=== PATIENT | female | born 1945 | race Caucasian/White ===

== ENCOUNTER 2023-04-08 15:22 | Observation (INO) ==
[2023-04-08 18:34] LABS: ABS Basophils 0.1 10^3/uL (0.0-0.1); ABS Eosinophils 0.2 10^3/uL (0.0-0.5); ABS Lymphocytes 1.9 10^3/uL (1.0-4.8); ABS Monocytes 0.8 10^3/uL (0.0-0.9); ABS Neutrophils 3.9 10^3/uL (1.5-7.6); Eosinophil % 3.6 %; Hematocrit 35.8 % (35-45); Hemoglobin 12.1 g/dL (11.5-14.3); Lymphocyte % 27.3 %; Mean Corpuscular Hemoglobin 31.8 pg (27-33); Mean Corpuscular Hgb Conc 33.9 g/dL (31-36); Mean Corpuscular Volume 93.9 fL (80-97); Mean Platelet Volume 7.5 fL (7.5-11.2); Platelet Count 261 10^3/uL (150-450); Red Blood Count 3.81 10^6/uL (3.63-4.92); Red Cell Distribution Width 13.5 % (12-17); White Blood Count 6.9 10^3/uL (3.8-11.8)
[2023-04-08 18:48] LABS: Albumin 3.9 g/dL (3.2-5.2); Calcium 9.5 mg/dL (8.6-10.3); Potassium 3.8 mmol/L (3.5-5.0); Total Bilirubin 0.4 mg/dL (0.2-1.0)
[2023-04-08 18:54] LABS: Albumin/Globulin Ratio 1.3 (1-3); C Reactive Protein 11.19 mg/L (<8.01); Creatinine, Serum 1.12 mg/dL (0.51-0.95); Globulin 3.1 g/dL (2-4); Phosphorus 3.4 mg/dL (2.5-5.0); eGFR CKD-EPI 49.7 (>60)
[2023-04-08 19:28] LABS: TSH Ultra Thyroid Stim Horm 13.13 mcIU/mL (0.34-5.60)
[2023-04-08 19:50] LABS: High Sensitivity Troponin 1 Hr 4 pg/mL (<15)
[2023-04-08 21:02] LABS: Erythrocyte Sed Rate 42 mm/Hr (0-29)
[2023-04-08] MEDS ORDERED: Lactated Ringers 1000 ml BAG 1,000 ML IV SCH (23:45)
[2023-04-09 07:17] LABS: ABS Basophils 0.1 10^3/uL (0.0-0.1); ABS Eosinophils 0.2 10^3/uL (0.0-0.5); ABS Lymphocytes 1.4 10^3/uL (1.0-4.8); ABS Monocytes 0.6 10^3/uL (0.0-0.9); ABS Neutrophils 3.7 10^3/uL (1.5-7.6); ABS Nucleated RBC 0.01 10^3/ul; Eosinophil % 3.2 %; Hematocrit 36.6 % (35-45); Hemoglobin 12.4 g/dL (11.5-14.3); Lymphocyte % 23.3 %; Mean Corpuscular Hemoglobin 31.7 pg (27-33); Mean Corpuscular Volume 93.2 fL (80-97); Mean Platelet Volume 7.5 fL (7.5-11.2); Nucleated Red Blood Cells % 0.1 /100 WBC (0.0-0.4); Platelet Count 251 10^3/uL (150-450); Red Blood Count 3.92 10^6/uL (3.63-4.92); Red Cell Distribution Width 13.6 % (12-17); White Blood Count 5.9 10^3/uL (3.8-11.8)
[2023-04-09 07:38] LABS: Creatinine, Serum 1.04 mg/dL (0.51-0.95); Potassium 4.1 mmol/L (3.5-5.0); eGFR CKD-EPI 54.3 (>60)
[2023-04-09 08:26] LABS: Free T4 0.87 ng/dL (0.61-1.12)
[2023-04-09 08:27] LABS: Free T3 2.8 pg/mL (2.5-3.9)
[2023-04-09] MEDS: Cholecalciferol (VIT D3) 400 units TAB PO SCH (08:27)
[2023-04-09] MEDS: Calcium (OSCAL) 500 mg TAB PO SCH ×2 (08:27→17:22)
[2023-04-09] MEDS: Enoxaparin 40 MG/0.4 ML SYR SUBCUT SCH ×2 (08:34→22:14)
[2023-04-09] MEDS: Carbidopa/Levodop 25/100 MG TAB PO SCH ×2 (15:06→22:12)
[2023-04-09] MEDS: [UNRECOGNIZED DRUG - OTHER] PO SCH (22:13)
[2023-04-10 06:39] LABS: ABS Eosinophils 0.2 10^3/uL (0.0-0.5); ABS Lymphocytes 1.6 10^3/uL (1.0-4.8); ABS Monocytes 0.6 10^3/uL (0.0-0.9); ABS Neutrophils 3.8 10^3/uL (1.5-7.6); Eosinophil % 3.5 %; Hematocrit 36.8 % (35-45); Hemoglobin 12.4 g/dL (11.5-14.3); Mean Corpuscular Hemoglobin 31.3 pg (27-33); Mean Corpuscular Hgb Conc 33.7 g/dL (31-36); Mean Corpuscular Volume 92.9 fL (80-97); Mean Platelet Volume 7.6 fL (7.5-11.2); Nucleated Red Blood Cells % 0.1 /100 WBC (0.0-0.4); Platelet Count 258 10^3/uL (150-450); Red Blood Count 3.96 10^6/uL (3.63-4.92); Red Cell Distribution Width 13.4 % (12-17); White Blood Count 6.3 10^3/uL (3.8-11.8)
[2023-04-10 06:53] LABS: Calcium 10.2 mg/dL (8.6-10.3); Creatinine, Serum 0.86 mg/dL (0.51-0.95); Potassium 4.3 mmol/L (3.5-5.0); eGFR CKD-EPI 68.3 (>60)
[2023-04-10] MEDS: Cholecalciferol (VIT D3) 400 units TAB PO SCH (09:54)
[2023-04-10] MEDS: Calcium (OSCAL) 500 mg TAB PO SCH ×2 (09:54→17:13)
[2023-04-10] MEDS: Carbidopa/Levodop 25/100 MG TAB PO SCH ×3 (09:54→21:14)
[2023-04-10] MEDS: [UNRECOGNIZED DRUG - OTHER] PO SCH (09:57)
[2023-04-10] MEDS ORDERED: Influenza vaccine *QUAD* *2023-24* 0.5 ML SYRINGE IM ONE (12:01)
[2023-04-10] MEDS ORDERED: hydrALAZINE 20 mg/ml 1 ML Vial IV IV SLOW PU ONE (12:51)
[2023-04-10 17:15] LABS: Copper, S 122 mcg/dL (77-206)
[2023-04-10] MEDS: Enoxaparin 40 MG/0.4 ML SYR SUBCUT SCH (21:14)
[2023-04-11] MEDS: Cholecalciferol (VIT D3) 400 units TAB PO SCH (08:45)
[2023-04-11] MEDS: Carbidopa/Levodop 25/100 MG TAB PO SCH (08:45)
[2023-04-11] MEDS: Calcium (OSCAL) 500 mg TAB PO SCH (08:46)
[2023-04-11] MEDS ORDERED: Influenza vaccine *QUAD* *2023-24* 0.5 ML SYRINGE IM ONE (09:00)
[2023-04-11 10:09] VITALS: BP 122/57
[2023-04-11 14:19] LABS: Anaplasma phagocytophilum Negative (Negative); B. miyamotoi PCR, B Negative (Negative); Babesia divergens/MO-1 Negative (Negative); Babesia ducani Negative (Negative); Ehrlichia chaffeensis Negative (Negative); Ehrlichia ewingii/canis Negative (Negative); Ehrlichia muris eauclairensis Negative (Negative)
== END 2023-04-11 10:44 | disposition home or self-care (01) ==
LOC: ED 15:22 → EDHOLD 21:58 → INTOOBSV 21:58 → SUATTDRO 21:58 → MEDTELE 04-09 08:17
PROVIDERS: ADMIT Hospitalist; ATTEND Internal Medicine

== ENCOUNTER 2024-01-04 19:50 | Inpatient (IN) ==
[2024-01-04] MEDS ORDERED: fentaNYL 100 mcg/2 ml 50 MCG/ML VIAL ONE (19:58)
[2024-01-04] MEDS ORDERED: Midazolam 5 mg/5 ml VIAL 1 mg/ml 5 ml VIAL (5 mg) ONE (19:58)
[2024-01-04] MEDS ORDERED: VERAPAMIL 2.5 MG/ML 2 ML VIAL ** 5 mg/2 ml ONE (19:58)
[2024-01-04] MEDS ORDERED: Heparin 1,000 UNIT/ML 10 ml (10,000 UNITS) CATHLAB/DIALYSIS ONE (19:58)
[2024-01-04] MEDS ORDERED: Lidocaine 1% MPF 5 ML VIAL ONE (19:59)
[2024-01-04] MEDS ORDERED: nitroGLYCERIN DRIP 25,000 MCG/250 ML BTL ONE (19:59)
[2024-01-04] MEDS ORDERED: Iohexol 350 (CONTRAST) 200 ML MDV IV ONE ×2 (19:59→21:08)
[2024-01-04] MEDS ORDERED: Heparin 2 UNITS/ML 1000 mls 2,000 ML IV ONE (19:59)
[2024-01-04] MEDS ORDERED: Bivalirudin 250 MG VIAL ONE (20:34)
[2024-01-04] MEDS: NS 0.9% 1000 ml BAG 1,000 ML IV SCH (22:35)
[2024-01-04 23:24] LABS: ABS Basophils 0.1 10^3/uL (0.0-0.1); ABS Eosinophils 0.4 10^3/uL (0.0-0.5); ABS Lymphocytes 2.3 10^3/uL (1.0-4.8); ABS Monocytes 0.5 10^3/uL (0.0-0.9); ABS Neutrophils 5.6 10^3/uL (1.5-7.6); Eosinophil % 4.4 %; Hematocrit 35.8 % (35-45); Lymphocyte % 25.5 %; Mean Corpuscular Hemoglobin 31.7 pg (27-33); Mean Corpuscular Hgb Conc 33.6 g/dL (31-36); Mean Corpuscular Volume 94.4 fL (80-97); Mean Platelet Volume 8.6 fL (7.5-11.2); Platelet Count 229 10^3/uL (150-450); Red Blood Count 3.79 10^6/uL (3.63-4.92); Red Cell Distribution Width 14.1 % (12-17); White Blood Count 8.9 10^3/uL (3.8-11.8)
[2024-01-05] MEDS: nitroGLYCERIN DRIP 25,000 MCG/250 ML BTL IV SCH (00:12)
[2024-01-05 00:24] LABS: Albumin 3.6 g/dL (3.2-5.2); Albumin/Globulin Ratio 1.5 (1-3); Creatinine, Serum 1.03 mg/dL (0.51-0.95); Globulin 2.4 g/dL (2-4); Magnesium 1.9 mg/dL (1.9-2.7); Potassium 4.4 mmol/L (3.5-5.0); Total Bilirubin 0.4 mg/dL (0.2-1.0)
[2024-01-05 01:33] LABS: INR 1.67 (0.83-1.13)
[2024-01-05 01:36] LABS: Activated Partial Thrombo Time 307.8 seconds (26.0-38.0)
[2024-01-05 04:18] LABS: ABS Basophils 0.1 10^3/uL (0.0-0.1); ABS Eosinophils 0.4 10^3/uL (0.0-0.5); ABS Lymphocytes 2.3 10^3/uL (1.0-4.8); ABS Monocytes 0.8 10^3/uL (0.0-0.9); Eosinophil % 4.9 %; Hematocrit 32.2 % (35-45); Lymphocyte % 30.4 %; Mean Corpuscular Hemoglobin 31.8 pg (27-33); Mean Corpuscular Hgb Conc 34.1 g/dL (31-36); Mean Corpuscular Volume 93.2 fL (80-97); Mean Platelet Volume 8.1 fL (7.5-11.2); Platelet Count 208 10^3/uL (150-450); Red Blood Count 3.45 10^6/uL (3.63-4.92); Red Cell Distribution Width 14.1 % (12-17); White Blood Count 7.6 10^3/uL (3.8-11.8)
[2024-01-05 05:05] LABS: Albumin 3.3 g/dL (3.2-5.2); Albumin/Globulin Ratio 1.8 (1-3); Calcium 8.3 mg/dL (8.6-10.3); Creatinine, Serum 0.96 mg/dL (0.51-0.95); Globulin 1.8 g/dL (2-4); HDL Cholesterol 50.5 mg/dL; Potassium 4.3 mmol/L (3.5-5.0); Total Bilirubin 0.4 mg/dL (0.2-1.0); Total Protein 5.1 g/dL (6.4-8.9); eGFR CKD-EPI 59.8 (>60)
[2024-01-05] MEDS ORDERED: Sulfur Hexaflouride MICROSPHR 25 MG VIAL ONE (08:16)
[2024-01-05] MEDS: Sulfur Hexaflouride MICROSPHR 25 MG VIAL IV ONE (08:30)
[2024-01-05] MEDS: Al Hydrox/Mg Hydrox/Simet LIQ 30 ML UDC PO ONE (14:02)
[2024-01-06 06:05] VITALS: BP 112/63
[2024-01-06 06:10] LABS: Hemoglobin 11.3 g/dL (11.5-14.3); Mean Corpuscular Hemoglobin 30.7 pg (27-33); Mean Corpuscular Hgb Conc 33.3 g/dL (31-36); Mean Corpuscular Volume 92.4 fL (80-97); Mean Platelet Volume 8.5 fL (7.5-11.2); Platelet Count 216 10^3/uL (150-450); Red Blood Count 3.68 10^6/uL (3.63-4.92); Red Cell Distribution Width 13.6 % (12-17); White Blood Count 8.2 10^3/uL (3.8-11.8)
[2024-01-06 09:16] LABS: Calcium 8.7 mg/dL (8.6-10.3); Creatinine, Serum 0.96 mg/dL (0.51-0.95); Magnesium 1.9 mg/dL (1.9-2.7); eGFR CKD-EPI 59.8 (>60)
== END 2024-01-06 13:55 | disposition home or self-care (01) | DRG 322 ==
LOC: ED 19:50 → CHICATH 20:16 → ICU 20:16 → MEDTELE 01-05 15:42

== ENCOUNTER 2024-01-27 17:01 | Observation (INO) ==
[2024-01-27] MEDS ORDERED: Ondansetron 4 mg VIAL 2 MG/ML 2 ml VIAL IV PRN (18:19)
[2024-01-27] MEDS: Lactated Ringers 1000 ml BAG 1,000 ML IV SCH (20:58)
[2024-01-27] MEDS: Morphine 2 MG/ML SYRINGE IV PRN (22:27)
[2024-01-28 06:41] LABS: ABS Eosinophils 0.3 10^3/uL (0.0-0.5); ABS Lymphocytes 1.2 10^3/uL (1.0-4.8); ABS Monocytes 0.6 10^3/uL (0.0-0.9); ABS Neutrophils 6.9 10^3/uL (1.5-7.6); Eosinophil % 2.9 %; Hematocrit 31.3 % (35-45); Hemoglobin 10.5 g/dL (11.5-14.3); Mean Corpuscular Hemoglobin 31.9 pg (27-33); Mean Corpuscular Hgb Conc 33.4 g/dL (31-36); Mean Corpuscular Volume 95.5 fL (80-97); Mean Platelet Volume 8.4 fL (7.5-11.2); Platelet Count 203 10^3/uL (150-450); Red Blood Count 3.28 10^6/uL (3.63-4.92); Red Cell Distribution Width 14.6 % (12-17); White Blood Count 8.9 10^3/uL (3.8-11.8)
[2024-01-28 07:20] LABS: Calcium 8.2 mg/dL (8.6-10.3); Creatinine, Serum 1.37 mg/dL (0.51-0.95); Magnesium 1.9 mg/dL (1.9-2.7); Potassium 4.5 mmol/L (3.5-5.0)
[2024-01-28] MEDS ORDERED: Lidocaine 2% PF 5 ML VIAL INJ ONE (10:08)
[2024-01-28] MEDS ORDERED: Ondansetron 4 mg VIAL 2 MG/ML 2 ml VIAL IV ONE (10:08)
[2024-01-28] MEDS ORDERED: Dexamethasone IV 4 MG/ML VIAL 1 ml VIAL IV SLOW PU ONE (10:08)
[2024-01-28] MEDS ORDERED: Propofol 10 MG/ML 20 ML BTL IV ONE (10:08)
[2024-01-28] MEDS ORDERED: fentaNYL 100 mcg/2 ml 50 MCG/ML VIAL IV ONE (10:09)
[2024-01-28] MEDS ORDERED: Furosemide 20 mg/2 ml IV VIAL IV ONE (10:34)
[2024-01-28] MEDS ORDERED: cefTRIAXone 2 gm/50 mL D5W 2 GM/50 ML BAG IV ONE (11:20)
[2024-01-28] MEDS: Cholecalciferol (VIT D3) 400 units TAB PO SCH (15:10)
[2024-01-28 15:55] VITALS: BP 123/54
== END 2024-01-28 16:55 | disposition home or self-care (01) ==
LOC: EDHOLD 17:01 → ED 17:01 → SUATTDRO 18:19 → AA 01-28 09:03 → SSU 01-28 09:09
PROVIDERS: ADMIT Student in an Organized Health Care Education/Training Program; ATTEND Student in an Organized Health Care Education/Training Program

== ENCOUNTER 2024-06-06 21:12 | Inpatient (IN) ==
[2024-06-07] MEDS ORDERED: Al Hydrox/Mg Hydrox/Simet LIQ 30 ML UDC PO PRN (05:55)
[2024-06-07 08:38] VITALS: BP 147/75
[2024-06-07] MEDS: Vitamin THERAPEUTIC TAB PO SCH (12:31)
[2024-06-08] MEDS ORDERED: COVID VAC 24-25 (12+) (Moderna) Syringe 0.5 mL IM ONE (09:00)
[2024-06-08] MEDS ORDERED: Influenza Vaccine *TRI* 2024-25* 0.5 ML SYRINGE IM ONE (09:00)
== END 2024-06-07 15:55 | disposition home or self-care (01) | DRG 881 ==
LOC: ED 21:12 → EDHOLD 06-07 04:56 → BSU 06-07 05:59
PROVIDERS: ADMIT Psychiatry & Neurology Psychiatry; ATTEND Student in an Organized Health Care Education/Training Program